=== PATIENT | female | born 1960 | race Caucasian/White ===

== ENCOUNTER 2016-11-10 15:56 | Emergency (ER) | payer MEDICARE ==
[2016-01-14 12:32] VITALS: BMI 34.3
[~2016-11-10 15:56] MED LIST: ASPIRIN81 MG PO; HYDROCODONE-APA1 TAB; HYDROCODONE-APA1 TAB PO; LISINOPRIL10 MG; MEDROL DOSE PACK4 MG; OMEPRAZOLE40 MG; OMEPRAZOLE40 MG PO; PRAVASTATIN SOD10 MG PO; PRAVASTATIN TAB 10M; TENORMIN50 MG PO
[2016-11-10 16:41] LABS: BASOPHILS 0.1 % (0-2); EOSINOPHILS 0.7 % (0-7); HEMATOCRIT 39.4 % (36.0-48.0); HEMOGLOBIN 12.3 g/dL (12-16); IMMATURE GRANULOCYTES 0.3 % (0-5); LYMPHOCYTES 18.8 % (15-50); MCH 25.7 pg (26.0-34.0); MCHC 31.2 g/dL (31.0-37.0); MCV 82.4 fL (80.0-100.0); MEAN PLATELET VOLUME 10.7 fL (7.4-10.4); MONOCYTES 6.7 % (2-11); NEUTROPHILS 73.4 % (40-80); RBC 4.78 10x6/uL (4.00-5.40); RDW 16.6 % (11.5-14.5); WBC 9.7 10x3/uL (4.8-10.8)
[2016-11-10 16:53] LABS: PLATELET COUNT 209 10x3/uL (130-400)
[2016-11-10 16:56] LABS: ALBUMIN 3.9 g/dL (3.4-5.0); ALKALINE PHOSPHATASE 95 U/L (46-116); ALT (SGPT) 23 U/L (10-68); BILIRUBIN - TOTAL 0.84 mg/dL (0.2-1.3); CALCIUM 9.4 mg/dL (8.5-10.1); CARBON DIOXIDE 21.8 mmol/L (21.0-32.0); CHLORIDE - SERUM 103 mmol/L (98-107); CREATININE - SERUM 1.2 mg/dL (0.6-1.3); POTASSIUM - SERUM 4.8 mmol/L (3.5-5.1); PROTEIN - SERUM 8.3 g/dL (6.4-8.2); SODIUM 140 mmol/L (136-145); UREA NITROGEN 22 mg/dL (7-18); eGFR NON AFRICAN AMERICAN 49 mL/min (90-120)
[2016-11-10 16:58] LABS: CREATINE KINASE 85 UL (21-215); MAGNESIUM - SERUM 1.4 mg/dL (1.8-2.4)
[2016-11-10 17:07] LABS: CALC OSMOLALITY 285 mosm/kg (275-300); GLUCOSE 166 mg/dL (74-106); TROPONIN-I < 0.017 ng/mL (0.000-0.060)
[2016-11-10 17:33] LABS: APPEARANCE CLEAR (CLEAR); BILIRUBIN NEGATIVE (NEGATIVE); COLOR YELLOW (YELLOW); GLUCOSE NEGATIVE (NEGATIVE); KETONE NEGATIVE (NEGATIVE); LEUKOCYTE ESTERASE NEGATIVE (NEGATIVE); NITRITE NEGATIVE (NEGATIVE); PROTEIN NEGATIVE (NEGATIVE); UROBILINOGEN NORMAL (NORMAL)
[2016-11-10 18:00] LABS: UDS - AMPHET NEGATIVE QUAL (NEGATIVE); UDS - BARB NEGATIVE QUAL (NEGATIVE); UDS - BENZO NEGATIVE QUAL (NEGATIVE); UDS - COCAINE NEGATIVE QUAL (NEGATIVE); UDS - METH NEGATIVE QUAL (NEGATIVE); UDS - OPIATE POSITIVE QUAL (NEGATIVE); UDS - PCP NEGATIVE QUAL (NEGATIVE); UDS - THC NEGATIVE QUAL (NEGATIVE)
== END 2016-11-10 18:30 | disposition home or self-care (01) ==
LOC: D.ER 15:56
PROVIDERS: Emergency Medicine
DX: E86.0 Dehydration (principal); T67.5XXA Heat exhaustion, unspecified, initial encounter; X58.XXXA Exposure to other specified factors, initial encounter; Y93.89 Activity, other specified; Y92.89 Other specified places as the place of occurrence of the external cause; R51 Headache; F17.200 Nicotine dependence, unspecified, uncomplicated

== ENCOUNTER 2017-06-06 10:26 | Outpatient (CLI) | payer MEDICARE ==
[~2017-06-06] VITALS: Ht 177.8 cm; Wt 115.9 kg
[2017-06-06 12:46] LABS: BASOPHILS 0.2 % (0-2); EOSINOPHILS 4.6 % (0-7); HEMATOCRIT 37.1 % (36.0-48.0); HEMOGLOBIN 10.8 g/dL (12-16); IMMATURE GRANULOCYTES 0.2 % (0-5); MCH 21.7 pg (26.0-34.0); MCHC 29.1 g/dL (31.0-37.0); MCV 74.6 fL (80.0-100.0); MEAN PLATELET VOLUME 9.9 fL (7.4-10.4); MONOCYTES 8.5 % (2-11); NEUTROPHILS 65.5 % (40-80); PLATELET COUNT 185 10x3/uL (130-400); RBC 4.97 10x6/uL (4.00-5.40); WBC 8.5 10x3/uL (4.8-10.8)
[2017-06-06 13:08] LABS: ALBUMIN 3.7 g/dL (3.4-5.0); ALKALINE PHOSPHATASE 103 U/L (46-116); ALT (SGPT) 11 U/L (10-68); BILIRUBIN - TOTAL 0.56 mg/dL (0.2-1.3); CALC OSMOLALITY 275 mosm/kg (275-300); CALCIUM 9.2 mg/dL (8.5-10.1); CARBON DIOXIDE 27.3 mmol/L (21.0-32.0); CHLORIDE - SERUM 105 mmol/L (98-107); CREATININE - SERUM 0.6 mg/dL (0.6-1.3); PROTEIN - SERUM 8.7 g/dL (6.4-8.2); SODIUM 139 mmol/L (136-145); UREA NITROGEN 9 mg/dL (7-18); eGFR NON AFRICAN AMERICAN > 90 mL/min (90-120)
[2017-06-06 13:10] LABS: GLUCOSE 86 mg/dL (74-106)
[2017-06-06 13:15] LABS: THYROID STIMULATING HORMONE 1.19 uIU/mL (0.36-3.74)
[2017-06-06 17:55] VITALS: BP 185/61; BMI 36.6
[2017-06-06 18:22] VITALS: BP 185/61; Ht 177.8 cm; Wt 115.9 kg
--- NOTE | 2017-06-06 20:35 | NUR ---
PATIENT HAS HAD 5 BOWEL MOVEMENTS IN TOILET DURING SOAP SUDS ENEMA PROCESS, HAS SIXTH BOWEL MOVEMENT AFTER INSTILLATION OF ENEMA AND YELLOW CLEAR LIQUID PRODUCED. DIGITAL EXAM FOR IMPACTION IS NEGATIVE. PATIENT STATES "I FEEL SO MUCH BETTER. I CAN ACTUALLY STAND STRAIGHT UP NOW." PATIENT DISCHARGED HOME
== END 2017-06-06 20:43 | disposition home or self-care (01) ==
LOC: D.ER 10:26 → D.OPS 10:26 → EDSTATUS 15:00 → D.OPS 20:43
PROVIDERS: Physician Assistant
DX: K59.00 Constipation, unspecified (principal)

== ENCOUNTER → 2017-08-16 16:10 | Outpatient (CLI) | payer MEDICARE | END | disposition home or self-care (01) | LOC: D.MAMMO 15:45 | DX: Z12.31 Encounter for screening mammogram for malignant neoplasm of breast (principal) ==

== ENCOUNTER 2017-12-02 15:48 | Emergency (ER) | payer MEDICARE ==
[2017-12-02 16:42] LABS: BASOPHILS 0.1 % (0-2); EOSINOPHILS 0.3 % (0-7); HEMATOCRIT 37.3 % (36.0-48.0); HEMOGLOBIN 11.4 g/dL (12-16); IMMATURE GRANULOCYTES 0.2 % (0-5); LYMPHOCYTES 26.8 % (15-50); MCH 22.4 pg (26.0-34.0); MCHC 30.6 g/dL (31.0-37.0); MCV 73.3 fL (80.0-100.0); MEAN PLATELET VOLUME 9.8 fL (7.4-10.4); NEUTROPHILS 63.6 % (40-80); PLATELET COUNT 184 10x3/uL (130-400); RBC 5.09 10x6/uL (4.00-5.40); RDW 18.7 % (11.5-14.5); WBC 9.8 10x3/uL (4.8-10.8)
[2017-12-02 17:02] LABS: ALBUMIN 3.7 g/dL (3.4-5.0); ALKALINE PHOSPHATASE 78 U/L (46-116); ALT (SGPT) 18 U/L (10-68); CALC OSMOLALITY 280 mosm/kg (275-300); CARBON DIOXIDE 23.3 mmol/L (21.0-32.0); CHLORIDE - SERUM 103 mmol/L (98-107); CREATININE - SERUM 0.8 mg/dL (0.6-1.3); GLUCOSE 128 mg/dL (74-106); POTASSIUM - SERUM 3.5 mmol/L (3.5-5.1); PROTEIN - SERUM 8.7 g/dL (6.4-8.2); SODIUM 138 mmol/L (136-145); UREA NITROGEN 20 mg/dL (7-18); eGFR NON AFRICAN AMERICAN 78 mL/min (90-120)
== END 2017-12-02 19:04 | disposition home or self-care (01) ==
LOC: D.ER 15:48
PROVIDERS: Emergency Medicine
DX: E61.1 Iron deficiency (principal); E83.42 Hypomagnesemia; E86.0 Dehydration; R55 Syncope and collapse

== ENCOUNTER 2018-04-08 09:55 | Emergency (ER) | payer MEDICARE ==
[~2018-04-08] VITALS: Ht 177.8 cm; Wt 103.2 kg
[2018-04-08 09:58] VITALS: Ht 177.8 cm; Wt 103.2 kg
[2018-04-08] MEDS ORDERED: LISINOPRIL10 MG PO (10:03)
[2018-04-08] MEDS ORDERED: GLUCOPHAGE500 MG PO (10:04)
[2018-04-08] MEDS ORDERED: GLUCOPHAGE1000 MG PO (10:04)
[2018-04-08] MEDS ORDERED: KEFLEX500 MG PO (10:52)
[2018-04-08 11:24] LABS: APPEARANCE HAZY (CLEAR); COLOR YELLOW (YELLOW)
[2018-04-08 11:25] LABS: BACTERIA MODERATE /hpf (NONE SEEN); BILIRUBIN NEGATIVE (NEGATIVE); EPITHELIAL CELLS >50 /hpf (0-5); GLUCOSE NEGATIVE (NEGATIVE); KETONE NEGATIVE (NEGATIVE); MUCUS <1+ /lpf (NONE SEEN); NITRITE NEGATIVE (NEGATIVE); PROTEIN TRACE mg/dL (NEGATIVE); RED CELLS - URINE RARE /hpf (0-5); UROBILINOGEN NORMAL (NORMAL); WHITE CELLS - URINE RARE /hpf (0-5)
[2018-04-08 11:33] LABS: HEMATOCRIT 51.1 % (36.0-48.0); HEMOGLOBIN 17.3 g/dL (12-16); MCH 28.9 pg (26.0-34.0); MCHC 33.9 g/dL (31.0-37.0); MCV 85.5 fL (80.0-100.0); PLATELET COUNT 165 10x3/uL (130-400); RBC 5.98 10x6/uL (4.00-5.40); RDW 15.5 % (11.5-14.5); WBC 16.5 10x3/uL (4.8-10.8)
[2018-04-08 11:49] LABS: ALBUMIN 3.1 g/dL (3.4-5.0); ANION GAP 14.1 mmol/L (8-16); BILIRUBIN - TOTAL 0.72 mg/dL (0.2-1.3); CARBON DIOXIDE 26.1 mmol/L (21.0-32.0); CREATININE - SERUM 0.9 mg/dL (0.6-1.3); POTASSIUM - SERUM 3.2 mmol/L (3.5-5.1); PROTEIN - SERUM 7.9 g/dL (6.4-8.2)
[2018-04-08 12:05] LABS: EOSINOPHILS 1 % (0-7); LYMPHOCYTES 14 % (15-50); MONOCYTES 2 % (2-11); NEUTROPHILS 57 % (40-80); PLATELET ESTIMATE DECREASED
[2018-04-08] MEDS ORDERED: IMODIUM2 MG PO (12:56)
[2018-04-08 13:32] VITALS: BP 129/57
== END 2018-04-08 13:36 | disposition home or self-care (01) ==
LOC: D.ER 09:55
PROVIDERS: Emergency Medicine
DX: S16.1XXA Strain of muscle, fascia and tendon at neck level, initial encounter (principal); W18.30XA Fall on same level, unspecified, initial encounter; Y93.89 Activity, other specified; Y92.019 Unspecified place in single-family (private) house as the place of occurrence of the external cause; S00.81XA Abrasion of other part of head, initial encounter; L08.9 Local infection of the skin and subcutaneous tissue, unspecified; M54.6 Pain in thoracic spine; E11.9 Type 2 diabetes mellitus without complications; I10 Essential (primary) hypertension; J44.9 Chronic obstructive pulmonary disease, unspecified; F17.200 Nicotine dependence, unspecified, uncomplicated

== ENCOUNTER → 2018-07-03 15:10 | Outpatient (CLI) | payer MEDICARE ==
[2018-04-08 09:58] VITALS: BMI 32.6
[~2018-07-03 15:10] MED LIST changes: +GLUCOPHAGE1000 MG PO; +GLUCOPHAGE500 MG PO; +IMODIUM2 MG PO; +KEFLEX500 MG PO; +LISINOPRIL10 MG PO
== END | disposition home or self-care (01) ==
LOC: D.MRI 15:10
DX: M87.037 Idiopathic aseptic necrosis of right carpus (principal)

== ENCOUNTER 2019-03-16 10:13 | Inpatient (IN) | payer OTHER ==
[2019-03-16] VITALS (9 sets, daily range): BP systolic 133–189; BP diastolic 49–114
[~2019-03-16] VITALS: Ht 177.8 cm; Wt 95.2 kg
--- NOTE | 2019-03-16 10:55 | NUR ---
URINE SPEC OBTAINED, LABELED AT BS AND SENT TO LAB
[2019-03-16 11:03] LABS: APPEARANCE SL CLDY (CLEAR); COLOR DK YELLOW (YELLOW); SPECIFIC GRAVITY 1.015 (1.005-1.020)
[2019-03-16 11:05] LABS: BACTERIA MANY /hpf (NONE SEEN); BILIRUBIN NEGATIVE (NEGATIVE); EPITHELIAL CELLS 0-5 /hpf (0-5); GLUCOSE NEGATIVE (NEGATIVE); KETONE NEGATIVE (NEGATIVE); MUCUS <1+ /lpf (NONE SEEN); NITRITE NEGATIVE (NEGATIVE); PROTEIN 1+ mg/dL (NEGATIVE); RED CELLS - URINE 0-5 /hpf (0-5); WHITE CELLS - URINE OCC /hpf (0-5)
[2019-03-16 11:05] LABS: BASOPHILS 0.2 % (0-2); EOSINOPHILS 1.6 % (0-7); HEMATOCRIT 49.9 % (36.0-48.0); HEMOGLOBIN 17.7 g/dL (12-16); IMMATURE GRANULOCYTES 0.5 % (0-5); LYMPHOCYTES 23.3 % (15-50); MCH 30.8 pg (26.0-34.0); MCHC 35.5 g/dL (31.0-37.0); MCV 86.8 fL (80.0-100.0); MEAN PLATELET VOLUME 9.7 fL (7.4-10.4); MONOCYTES 10.7 % (2-11); NEUTROPHILS 63.7 % (40-80); PLATELET COUNT 190 10x3/uL (130-400); RBC 5.75 10x6/uL (4.00-5.40); RDW 14.6 % (11.5-14.5); WBC 13.6 10x3/uL (4.8-10.8)
[2019-03-16 11:06] LABS: AMORPHOUS SEDIMENT <1+ /lpf (NONE SEEN); GRANULAR CAST 0-5 /lpf (NONE SEEN); HYALINE CAST 0-5 /lpf (NONE SEEN); URIC ACID CRYSTALS RARE /hpf (NONE SEEN)
[2019-03-16 11:21] LABS: ALBUMIN 3.9 g/dL (3.4-5.0); ANION GAP 11.6 mmol/L (8-16); BILIRUBIN - TOTAL 1.03 mg/dL (0.2-1.3); CALCIUM 9.9 mg/dL (8.5-10.1); CARBON DIOXIDE 27.4 mmol/L (21.0-32.0); PROTEIN - SERUM 9.5 g/dL (6.4-8.2)
--- NOTE | 2019-03-16 11:30 | NUR ---
A/OX3. C/O ABD/RIGHT RIB "CRAMPS" HR IRREGULAR 98-167 BPM. NOTIFIED AND MEDS ADMIN DENIES CP
--- NOTE | 2019-03-16 12:55 | NUR ---
DISCHARGED STABLE WITH INSTR AND RX. VERB UNDER
--- NOTE | 2019-03-16 13:10 | NUR ---
DEPART PROCESS CHARTED ON INCORRECT PT
[2019-03-16] MEDS ORDERED: NIACIN100 MG PO (15:15)
[2019-03-16] MEDS ORDERED: VITAMIN D31000 UNIT PO (15:16)
[2019-03-16] MEDS ORDERED: MAGNESIUM OXID500 MG PO (15:16)
--- NOTE | 2019-03-16 15:45 | NUR ---
REPORT CALLED TO KAVITHA BERNABE BY SBAR FORMAT
--- NOTE | 2019-03-16 16:02 | NUR ---
CARDIZEM GTT, NS BOLUS AND ROCEPHIN 1 GM INFUSING UPON TX TO FLOOR
--- NOTE | 2019-03-16 16:02 | NUR ---
TRANSPORT TO ROOM #2121 CONDITION STABLE
--- NOTE | 2019-03-16 16:38 | NUR ---
RECIEVED FROM ER. TELEMERTY SHOWS SR 70. IV TO RIGHT ARM WITH CARDIZEM AT 10. SL TO LEFT HAND. DENIES ANY NEEDS. SR UP WITH CALL LIGHT IN REACH. WILL MONITOR.
[2019-03-16] MEDS ORDERED: LISINOPRIL10 MG (16:59)
[2019-03-16] MEDS ORDERED: GLUCOPHAGE500 MG PO (17:01)
[2019-03-16] MEDS ORDERED: PRAVACHOL20 MG PO (17:03)
[2019-03-16] MEDS ORDERED: OMEPRAZOLE40 MG PO (17:06)
[2019-03-16] MEDS ORDERED: HYDROCODON-ACE1 EA10 (17:09)
[2019-03-16] MEDS ORDERED: LISINOPRIL10 MG PO (17:13)
[2019-03-16] MEDS ORDERED: TENORMIN50 MG PO (17:15)
--- NOTE | 2019-03-16 17:26 | MORECARE ---
CASE MANAGEMENT DISCHARGE SUMMARY PATIENT: JAZZY BARNES I UNIT: [id number] ADM DATE: 03/16/19 AGE: 58 : 56 SEX: F ROOM/BED: D.2121 AUTHOR: JILL SLATER PHYSICIAN: REFERRING PHYSICIAN: JC HOUGH MD DATE OF SERVICE: 03/16/19 Discharge Plan Patient Name: JAZZY BARNES [facility] [facility] 1960 Planned Disposition: Home Anticipated Discharge Date: 03/19/19 Discharge Date: Expected LOS: 3 Initial Reviewer: [email or web address] Initial Review Date: 03/16/2019 Generated: 03/16/19 6:25 pm DCPIA - Discharge Planning Initial Assessment Updated by [email or web address]: Gwendolyn Dhaliwal on 03/16/19 5:25 pm * Is the patient Alert and Oriented? Yes * How many steps to enter\exit or inside your home? None * PCP Dr. Hough * Pharmacy [facility] - by the [facility] * Preadmission Environment Home Alone * ADLs Independent * Equipment Bedside Commode Cane CPAP Rolling Walker * List name and contact numbers for known caregivers / representatives who currently or will assist patient after discharge: Zara Dill - [facility] - [phone] * Verbal permission to speak to the caregivers and representatives has been obtained from the patient. Yes * Community resources currently utilized None * Additional services required to return to the preadmission environment? No * Can the patient safely return to the preadmission environment? Yes * Has this patient been hospitalized within the prior 30 days at any hospital? No Patient Name: JAZZY BARNES Page [id number] at 1726 All edits/amendments must be made on the electronic document DICTATION DATE: 03/16/191724 VINYL CUTTER: MARS 03/16/191724 RPT#: [id number] DC DATE: STATUS: ADM IN [facility] [address] [place] [address] END OF REPORT
--- NOTE | 2019-03-16 17:34 | MORECARE ---
CASE MANAGEMENT DISCHARGE SUMMARY PATIENT: JAZZY BARNES I UNIT: [id number] ADM DATE: 03/16/19 AGE: 58 : 56 SEX: F ROOM/BED: D.8342 AUTHOR: NOHEMY,DOC PHYSICIAN: REFERRING PHYSICIAN: JC HOUGH MD DATE OF SERVICE: 03/16/19 Discharge Plan Patient Name: JAZZY BARNES Facility: [facility]:[place] : 1960 Planned Disposition: Home Anticipated Discharge Date: 03/19/19 Discharge Date: Expected LOS: 3 Initial Reviewer: [email or web address] Initial Review Date: 03/16/2019 Generated: 03/16/19 6:33 pm DCP- Discharge Planning Updated by [email or web address]: Gwendolyn Dhaliwal on 03/16/19 4:[address] DC PLAN: Return home alone independently. ANTICIPATED DC NEEDS: Denied known dc needs. CM met with patient to complete initial dc planning assessment. CM educated patient on the CM role and verbal consent given by patient to complete assessment. CM verified patient's address, phone number, and emergency contact phone numbers. Patient lives at home alone and reports she is independent in her care. At discharge patient plans to return home alone and feels this is a safe discharge. CM discussed availability of home health, rehab services, and medical equipment. Patient denied known discharge needs at this time. Patient reports her daughter or a friend will transport him/her home at time of discharge. CM will continue to follow and will assist as needed with dc plans/needs. Gwendolyn Dhaliwal RN, [facility] DCPIA - Discharge Planning Initial Assessment Updated by [email or web address]: Gwendolyn Dhaliwal on 03/16/19 5:25 pm * Is the patient Alert and Oriented? Yes * How many steps to enter\exit or inside your home? None * PCP Dr. Hough * Pharmacy [facility] - by the [facility] * Preadmission Environment Home Alone * ADLs Independent * Equipment Bedside Commode Cane CPAP Rolling Walker * List name and contact numbers for known caregivers / representatives who currently or will assist patient after discharge: Zara Dill - r - [phone] * Verbal permission to speak to the caregivers and representatives has been obtained from the patient. Yes * Community resources currently utilized None * Additional services required to return to the preadmission environment? No * Can the patient safely return to the preadmission environment? Yes * Has this patient been hospitalized within the prior 30 days at any hospital? No Last DP export: 03/16/19 4:26 p Patient Name: JAZZY BARNES Page [id number] at 1734 All edits/amendments must be made on the electronic document DICTATION DATE: 03/16/191732 PRESS BRAKE OPERATOR: MARS 03/16/191732 RPT#: [id number] DC DATE: STATUS: ADM IN [facility] [address] [place] [address] END OF REPORT
--- NOTE | 2019-03-16 18:21 | NUR ---
HOB UP FOR DIET. IV CARDIZEM AT 10. DENIES ANY NEEDS. TELEMERTY SHOWS SR 70.
--- NOTE | 2019-03-16 19:42 | NUR ---
BEDSIDE REPORT RECEIVED. PATIENT IS ALERT AND ORIENTED, RESTING COMFORTABLY IN BED. REPIRATIONS ARE EVEN AND UNLABORED. NO S/S OF DISTRESS. NO C/O PAIN. NEEDS MET. CALL IGHT WITHIN REACH. WILL CPOC.
[2019-03-17] VITALS: BP 129/56
[2019-03-17 00:31] VITALS: BP 133/49; Ht 177.8 cm; Wt 95.2 kg
[2019-03-17 04:00] VITALS: BP 138/59
[2019-03-17 05:49] LABS: BASOPHILS 0.2 % (0-2); EOSINOPHILS 1.8 % (0-7); HEMATOCRIT 42.1 % (36.0-48.0); HEMOGLOBIN 14.2 g/dL (12-16); IMMATURE GRANULOCYTES 0.4 % (0-5); LYMPHOCYTES 27.3 % (15-50); MCHC 33.7 g/dL (31.0-37.0); MEAN PLATELET VOLUME 10.1 fL (7.4-10.4); NEUTROPHILS 61.3 % (40-80); PLATELET COUNT 157 10x3/uL (130-400); RBC 4.74 10x6/uL (4.00-5.40); RDW 14.8 % (11.5-14.5); WBC 11.6 10x3/uL (4.8-10.8)
[2019-03-17 06:16] LABS: ALBUMIN 3.2 g/dL (3.4-5.0); ALKALINE PHOSPHATASE 87 U/L (46-116); ALT (SGPT) 22 U/L (10-68); BILIRUBIN - TOTAL 0.78 mg/dL (0.2-1.3); CALC OSMOLALITY 281 mosm/kg (275-300); CALCIUM 8.8 mg/dL (8.5-10.1); CHLORIDE - SERUM 103 mmol/L (98-107); CREATININE - SERUM 0.8 mg/dL (0.6-1.3); GLUCOSE 164 mg/dL (74-106); POTASSIUM - SERUM 3.9 mmol/L (3.5-5.1); PROTEIN - SERUM 7.9 g/dL (6.4-8.2); SODIUM 138 mmol/L (136-145); UREA NITROGEN 19 mg/dL (7-18); eGFR NON AFRICAN AMERICAN 77 mL/min (90-120)
[2019-03-17 06:45] LABS: MCV 88.8 fL (80.0-100.0)
--- NOTE | 2019-03-17 07:30 | NUR ---
PT RESTING IN BED, SHIFT ASSESSMENT PERFORMED. DENIES ANY NEEDS AT THIS TIME, WILL CONT TO FOLLOW POC
[2019-03-17 09:43] VITALS: BP 126/54
--- NOTE | 2019-03-17 12:20 | NUR ---
PT RESTING IN BED EATING LUNCH, DENIES ANY NEEDS AT THIS TIME, WILL CONT TO FOLLOW POC
[2019-03-17] MEDS ORDERED: MACRODANTIN100 MG PO (12:42)
[2019-03-17] MEDS ORDERED: CARDIZEM CD180 MG PO (12:42)
[2019-03-17 13:54] VITALS: BP 133/63
--- NOTE | 2019-03-17 15:19 | NUR ---
PIV TO LEFT HAND INFILTRATED, PIV REMOVED WITH CATHETER TIP INTACT. 20G PIV INSERTED X1 ATTEMPT TO PT RIGHT FA.
--- NOTE | 2019-03-17 17:09 | NUR ---
DISCHARGE INSTRUCTIONS REVIEWED WITH PT AND ALL QUESTIONS ANSWERED. BOTH PIV REMOVED TO PT RIGHT ARM WITH CATHETER TIP INTACT. PT TAKEN TO FRONT OF HOSPITAL VIA WHEELCHAIR WHERE SHE LEFT WITH HER FRIEND
--- NOTE | 2019-03-19 08:23 | MORECARE ---
CASE MANAGEMENT DISCHARGE SUMMARY PATIENT: JAZZY BARNES I UNIT: [id number] ADM DATE: 03/16/19 AGE: 58 : 56 SEX: F ROOM/BED: D.1970 AUTHOR: NOHEMY,DOC PHYSICIAN: REFERRING PHYSICIAN: JC HOUGH MD DATE OF SERVICE: 03/19/19 Discharge Plan Patient Name: JAZZY BARNES Facility: [facility]:[place] : 1960 Planned Disposition: Home Anticipated Discharge Date: 03/17/19 Discharge Date: 03/17/2019 Expected LOS: 1 Initial Reviewer: [email or web address] Initial Review Date: 03/16/2019 Generated: 03/19/19 9:23 am DCP- Discharge Planning Updated by [email or web address]: Gwendolyn Dhaliwal on 03/16/19 4:[address] DC PLAN: Return home alone independently. ANTICIPATED DC NEEDS: Denied known dc needs. CM met with patient to complete initial dc planning assessment. CM educated patient on the CM role and verbal consent given by patient to complete assessment. CM verified patient's address, phone number, and emergency contact phone numbers. Patient lives at home alone and reports she is independent in her care. At discharge patient plans to return home alone and feels this is a safe discharge. CM discussed availability of home health, rehab services, and medical equipment. Patient denied known discharge needs at this time. Patient reports her daughter or a friend will transport him/her home at time of discharge. CM will continue to follow and will assist as needed with dc plans/needs. Gwendolyn Dhaliwal RN, [facility] DCPIA - Discharge Planning Initial Assessment Updated by [email or web address]: Gwendolyn Dhaliwal on 03/16/19 5:25 pm * Is the patient Alert and Oriented? Yes * How many steps to enter\exit or inside your home? None * PCP Dr. Hough * Pharmacy [facility] - by the [facility] * Preadmission Environment Home Alone * ADLs Independent * Equipment Bedside Commode Cane CPAP Rolling Walker * List name and contact numbers for known caregivers / representatives who currently or will assist patient after discharge: Zara Fuentes - [facility] - [phone] * Verbal permission to speak to the caregivers and representatives has been obtained from the patient. Yes * Community resources currently utilized None * Additional services required to return to the preadmission environment? No * Can the patient safely return to the preadmission environment? Yes * Has this patient been hospitalized within the prior 30 days at any hospital? No Last DP export: 03/16/19 4:34 p Patient Name: JAZZY BARNES Page [id number] at 0823 All edits/amendments must be made on the electronic document DICTATION DATE: 03/19/19822 CLINICAL SUPPORT TECH: MARS 03/19/19822 RPT#: [id number] DC DATE:03/17/19 STATUS: DIS IN [facility] [address] [place] [address] END OF REPORT
== END 2019-03-17 17:11 | disposition home or self-care (01) | DRG 690 ==
LOC: D.ER 10:13 → D.M2 15:40
PROVIDERS: Family Medicine; ADMIT Family Medicine; ATTEND Family Medicine
DX: N39.0 Urinary tract infection, site not specified (principal); I48.91 Unspecified atrial fibrillation; I10 Essential (primary) hypertension; E11.9 Type 2 diabetes mellitus without complications; J44.9 Chronic obstructive pulmonary disease, unspecified

== ENCOUNTER → 2019-05-10 11:16 | Outpatient (CLI) | payer OTHER ==
[2019-03-17 00:31] VITALS: BMI 30.1
[~2019-05-10 11:16] MED LIST changes: +CARDIZEM CD180 MG PO; +HYDROCODON-ACE1 EA10; +MACRODANTIN100 MG PO; +MAGNESIUM OXID500 MG PO; +NIACIN100 MG PO; +PRAVACHOL20 MG PO; +VITAMIN D31000 UNIT PO
--- NOTE | 2019-05-11 13:51 | EC ---
PATIENT:JAZZY BARNES I DATE OF SERVICE: 05/10/19 SEX: F MEDICAL RECORD: [id number] DATE OF : 56 [facility] AGE OF PATIENT: 58 ADMISSION DATE: 05/10/19 REFERRING PHYSICIAN: INTERPRETING PHYSICIAN: CLARISSA GUERRA MD ECHOCARDIOGRAM REPORT ECHO CHARGES 4 ECHO COMPLETE Date: 05/10/19 CLINICAL DIAGNOSIS: HTN HX MITRAL REGURG/AIB ECHOCARDIOGRAPHIC MEASUREMENTS (adult normal given) AC root (d.<3.7cm) 3.0 cm LV Septum d (<1.2 cm> 1.3 cm Valve Excursion 1.8 cm LV Septum (systole) 1.5 cm Left Atria (s.<4.0cm> 4.6 cm LVPW d(<1.2cm) 1.5 cm RV (d.<2.3cm) 3.2 cm LVPW (sytole) 1.7 cm LV diastole(<5.6CM) 4.5 cm MV E-F(>70mm/sec) cm LV systole 3.0 cm LVOT Diameter 1.9 cm MV exc.(>10mm) 1.3 cm Est.ejection fraction (50-75%) % DOPPLER: LVIT cm/sec A 100 cm/sec E 119 cm/sec LA cm/sec RVSP 16 mmHg LVOT 130 cm/sec AOP1/2T m/s Asc. Ao 160 cm/sec RVOT 109 cm/sec RA cm/sec PA 137 cm/sec AV Gradient Peak 10.19mmHg AV Mean 5.34 mmHg AV Area 2.2 cm MV Gradient Peak 6.12 mmHg MV Mean 2.48 mmHg MV Area cm COMMENTS: Finish Opener: 2 PUSHPA JACQUES Wire Drawing Setter: 3 Dr. Mccann TAPE# PACS Pericardial Effusion N DATE OF SERVICE: Adequate 2D, color-flow, spectral Doppler, and M-mode. LVH is present. LV internal dimensions are normal. Wall motion is normal. EF is greater than or equal to 55%. Aortic valve is tricuspid. No evidence of stenosis by Doppler interrogation. Left atrium is dilated at 4.6 cm. Mitral valve shows no prolapse. Trace MR. Right-sided chambers are grossly normal. Trace TR. TRANSINT:[id number] Voice Confirmation ID: [id number] DOCUMENT ID: [id number] ECHOCARDIOGRAM REPORT [id number] JAZZY BARNES GREGORY A MD at 1351 CC: [id number] DICTATION DATE: 05/11/19 1158 MANAGER LIFE SCIENCES: 05/11/19 1220 DEP CLI 05/10/19 [id number] [place] [address]
== END | disposition home or self-care (01) ==
LOC: D.HCCECHO 11:16
PROVIDERS: ATTEND Internal Medicine Interventional Cardiology
DX: I10 Essential (primary) hypertension (principal)

== ENCOUNTER → 2020-03-12 14:30 | Outpatient (CLI) | payer OTHER ==
[2019-03-17 00:31] VITALS: BMI 30.1
== END | disposition home or self-care (01) ==
LOC: D.MAMMO 13:30
PROVIDERS: ATTEND Family Medicine
DX: Z12.31 Encounter for screening mammogram for malignant neoplasm of breast (principal)